=== PATIENT | male | born 1970 | race Caucasian/White ===

== ENCOUNTER 2016-05-10 17:28 | Emergency (ER) | payer OTHER ==
[2016-05-10 18:30] VITALS: BP 129/79
[2016-05-10] MEDS ORDERED: Ibuprofen TAB* 200 MG PO ONE (18:41)
--- NOTE | 2016-05-10 18:48 | UC ---
HPI Febrile Illness - HPI Summary HPI Summary: began feeling bad last night. Body aches, joint pain, bad headache, chills, fever to 102, malaise, poor appetite. No flu shot. No vomiting or diarrhea. Poor appetite. Just starting with dry cough and sore throat. "I feel terrible." - History of Current Complaint Chief Complaint: UCRespiratory Time Seen by Provider: 05/10/16 18:32 Hx Obtained From: Patient Onset/Duration: Started Days Ago - 1 Timing: Constant Initial Severity: Mild Current Severity: Moderate Aggravating Factors: Nothing Alleviating Factors: Nothing Associated Signs and Symptoms: Arthralgia, Chills, Cough - dry, just starting this afternoon, Headache, Joint Pain, Myalgia, Weakness - Risk Factors Pseudomonas Risk Factors: Negative Serious Bacterial Infection Risk Factors: Negative - Allergy/Home Medications Allergies/Adverse Reactions: Allergies Allergy/AdvReac Type Severity Reaction Status Date / Time Erythromycin Allergy Unknown Verified 05/10/16 18:30 Reaction Details Home Medications: Home Medications Ibuprofen TAB* [Advil TAB*] 800 mg PO Q6H PRN 05/10/16 [History Confirmed ] PMH/Surg Hx/FS Hx/Imm Hx Previously Healthy: Yes - Surgical History Surgery Procedure, Year, and Place: Hernia 2005. Appendectomy 2005. Large intestine 5 inches removal 2005 Infectious Disease History: No Infectious Disease History: Denies: Hx Clostridium Difficile, Hx Hepatitis, Hx Human Immunodeficiency Virus (HIV), Hx of Known/Suspected MRSA, Hx Shingles, Hx Tuberculosis, Hx Known/ Suspected VRE, Hx Known/Suspected VRSA, History Other Infectious Disease, Traveled Outside the in Last 30 Days - Family History Known Family History: Positive: Hypertension - Social History Occupation: Employed Full-time Lives: With Family Alcohol Use: Weekly Alcohol Amount: two times a week Substance Use Type: Reports: None Smoking Status (MU): Never Smoked Tobacco Review of Systems Constitutional: Fever, Chills, Fatigue Skin: Negative Eyes: Negative ENT: Sore Throat Respiratory: Cough - dry, rare Cardiovascular: Negative Gastrointestinal: Negative Genitourinary: Negative Motor: Negative Neurovascular: Negative Musculoskeletal: Arthralgia, Myalgia Neurological: Headache, Weakness Psychological: Negative All Other Systems Reviewed And Are Negative: Yes Physical Exam Triage Information Reviewed: Yes Appearance: Well-Appearing, No Pain Distress, Well-Nourished Vital Signs: Initial Vital Signs Temp 100.2 F 05/10/16 18:26 Pulse 87 05/10/16 18:26 Resp 16 05/10/16 18:26 BP 129/79 05/10/16 18:26 Pulse Ox 94 05/10/16 18:26 Vital Signs Reviewed: Yes Eye Exam: Normal Eyes: Positive: Conjunctiva Clear ENT: Positive: Hearing grossly normal, Pharyngeal erythema - mild, TMs normal. Negative: Tonsillar swelling, Tonsillar exudate, Trismus, Muffled/hoarse voice Neck exam: Normal Neck: Positive: Supple Respiratory Exam: Normal Respiratory: Positive: Lungs clear, Normal breath sounds, No respiratory distress, No accessory muscle use Cardiovascular Exam: Normal Musculoskeletal Exam: Normal Neurological Exam: Normal Psychological Exam: Normal Skin Exam: Normal Diagnostics - Laboratory Diagnostic Studies Completed/Ordered: flu neg; Strep neg Course/Dx - Febrile Illness Differential Diagnoses: Bacteremia, Pneumonia, Viremia - Diagnoses Clinic Provider Diagnoses: viral syndrome Discharge - Discharge Plan Condition: Stable Disposition: HOME Prescriptions: Guaifenesin-Codeine [Cheratussin AC] 1 - 2 teasp PO Q6HR PRN #120 ml MDD 30ml PRN Reason: Cough Pseudoephedrine HCl [Sudafed 12 Hour] 120 mg PO BID #20 tab Tramadol HCl [Ultram] 1 - 2 tab PO Q6HR PRN #20 tab MDD 6 tab PRN Reason: headache, body aches Patient Education Materials: Viral Syndrome (ED) Referrals: Garrett Rich MD [Primary Care Provider] -
== END 2016-05-10 19:17 | disposition home or self-care (01) ==
LOC: UCCORT 17:28
DX: B34.9 Viral infection, unspecified (principal); Z88.1 Allergy status to other antibiotic agents
CPT/HCPCS: 87502; 87651; 99212; A9270-GY; G0463